=== PATIENT | male | born 1975 | race Caucasian/White ===

== ENCOUNTER 2019-06-03 08:46 | Outpatient (CLI) | payer MEDICARE, MEDICAID, SELFPAY ==
--- NOTE | 2019-06-21 08:26 | W.ZIOMONITOR ---
Date of service: 06/21/19 Time of Service: 08:26 ZIO Patch Cloud [employer] Architect Note: This is a 2-week ZIO patch ordered for the indication of palpitations. ?The patient was in normal sinus rhythm for the majority of the recording. Minimum heart rate was 47 bpm and a maximum heart rate of 156 bpm. ?There were no episodes of supraventricular tachycardia. There were isolated (less than 1%) supraventricular ectopic beats. ?There were no episodes of ventricular tachycardia. There were isolated (<1%) ventricular ectopic beats. ?There were no episodes of atrial fibrillation, no pauses greater than 3 seconds, and no high degree AV block. ?There were 6 patient triggered events all associated with sinus rhythm and sinus tachycardia up to 117 bpm.
== END 2019-06-03 09:06 ==
PROVIDERS: Visit Provider Internal Medicine Cardiovascular Disease
DX: R00.2 Palpitations (principal); R07.9 Chest pain, unspecified; F17.210 Nicotine dependence, cigarettes, uncomplicated; R00.0 Tachycardia, unspecified
CPT/HCPCS: 0296T; 99204; 93005; 93010

== ENCOUNTER 2024-02-28 18:51 | Emergency (ER) | payer OTHER, MEDICAID, SELFPAY ==
[2024-02-28 19:05] VITALS: BP 134/97; PULSE 86; RESP 20; TEMP 36; O2SAT 94
[2024-02-28 21:16] LABS: Abs Immature Grans 0.03 10^3/uL (0.0-0.06); Absolute Basophil Count 0.05 10^3/uL (0.0-0.2); Absolute Eosinophil Count 0.08 10^3/uL (0.0-0.7); Absolute Lymphocyte Count 3.78 10^3/uL (1.2-3.4); Absolute Monocyte Count 0.74 10^3/uL (0.1-0.8); Absolute Neutrophil Count 4.15 10^3/uL (1.2-6.7); Basophils % 0.6 %; Eosinophils % 0.9 %; HCT 50.7 % (40.0-50.0); HGB 17.2 g/dL (13.5-17.5); Immature Grans % 0.3 %; Lymphocytes % 42.8 %; MCH 31.9 pg (27.0-33.0); MCHC 33.9 % (32.0-36.0); MCV 94 fL (80-95); MPV 10.2 fL (8.0-11.0); Monocytes % 8.4 %; Platelet Count 227 10^3/uL (130-400); RDW 12.9 % (11.8-14.1); RDW-SD 44.5 fL; WBC 8.83 10^3/uL (4.4-10.8)
[2024-02-28] MEDS: HYDROmorphone 2 MG/ML SYR 0.5 MG IVP ×2 (21:28→23:44)
[2024-02-28 21:31] LABS: ALT 22 U/L (16-63); AST 16 U/L (15-37); Albumin 3.8 g/dL (3.4-5.0); Alkaline Phosphatase 130 U/L (46-116); Anion Gap 9.3 mmol/L (3-11); BUN 7 mg/dL (7-18); Bilirubin, Total 0.39 mg/dL (0.2-1.0); CO2 28.7 mmol/L (21.0-32.0); CREATININE 1.1 mg/dL (0.70-1.30); Chloride 101 mmol/L (98-107); Estimated GFR 83.84 (mL/min/1.73m2); Glucose 102 mg/dL (74-106); Lipase 20 U/L (16-77); Magnesium 1.9 mg/dL (1.8-2.4); Potassium 3.7 mmol/L (3.5-5.1); Sodium 139 mmol/L (136-145); Total Protein 7.6 g/dL (6.4-8.2); Troponin I < 50 ng/L (< or =60)
[2024-02-28 21:35] LABS: Calcium 9.1 mg/dL (8.5-10.1)
[2024-02-28 21:56] LABS: Bilirubin Negative (Negative); Blood Negative (Negative); Clarity Clear (Clear); Glucose Negative (Negative); Ketones Negative (Negative); Leukocyte Esterase Negative (Negative); Nitrite Negative (Negative); Urobilinogen 0.2 mg/dL (Up to 0.2); pH 6.5 (5-8)
[2024-02-28] MEDS: Normal Saline - Diluent 50 ML VIAL IJ (22:40)
[2024-02-28] MEDS: Omnipaque 350 MG/ML 100 ML BTL IJ (22:44)
--- NOTE | 2024-02-28 22:45 | DI.CT_ITS ---
Exam(s) CT ABDOMEN PELVIS W EXAM: CT ABDOMEN PELVIS W CLINICAL HISTORY: RLQ abd pain. TECHNIQUE: Imaging Protocol: Axial computed tomography images with coronal and sagittal reformatted images were created and reviewed CONTRAST MATERIAL: Intravenous: Omnipaque 350 Contrast volume:100 ml Oral: / no COMPARISON: No exams were available for comparison FINDINGS: ABDOMEN and PELVIS: Lung Bases: No acute findings. Liver: Normal density. No suspicious mass. Gallbladder and biliary tract: Status post cholecystectomy. No radiodense calculus. No biliary dila tion. Pancreas: Normal density. No abnormal calcifications or inflammatory process. No evidence of mass. Spleen: Normal. Kidneys: Normal size, contour and axis. No radiodense stones. No obstructive uropathy. No suspicious masses seen. Adrenal glands: No masses seen. Vasculature: Abdominal aorta non-dilated. Soft tissues: Unremarkable. Bladder: No gross wall thickening. No calculi.No focal mass. Bowel: No obstruction. No bowel wall thickening. Appendix normal. Mild diverticulosis. No evidenc e of diverticulitis. Moderate quantity of stool. Peritoneal cavity: No ascites. No focal collection. No mesenteric inflammatory response. Bones: Unremarkable for age. Reproductive organs: Unremarkable. Lymph nodes: No pathologically enlarged lymph nodes. IMPRESSION:: No acute abnormality in the abdomen or pelvis. Appendix normal. Mild diverticulosis. RADIATION DOSE DELIVERED: Total DLP DATA REPOSITORY: All CT scans at this facility are submitted to the National Radiology Data Registry (NRDR) Dose Index Registry (DIR) with the [employer] (ACR). RADIATION OPTIMIZATION: All CT scans at this facility use at least one of these dose optimization te chniques: automated exposure control; mA and/or kV adjustment per patient size (includes targeted exa ms where dose is matched to clinical indication); or iterative reconstruction.
--- NOTE | 2024-02-28 23:53 | DI.VRAD_ITS ---
PROCEDURE INFORMATION: Exam: CT Abdomen And Pelvis With Contrast Exam date and time: 02/28/2024 10:33 PM Age: 48 years old Clinical indication: RLQ abd pain TECHNIQUE: Imaging protocol: Computed tomography of the abdomen and pelvis with contrast. Contrast material: OMNIPAQUE 350; Contrast volume: 100 ml; Contrast route: INTRAVENOUS (IV); COMPARISON: CR XR CHEST 2VW (D) 02/20/2019 7:18 PM FINDINGS: Liver: 14 mm peripherally-enhancing benign hemangioma within the superior right lobe of the liver, otherwise normal liver. Gallbladder and biliary ducts: Status post cholecystectomy. No biliary tract dilatation. Pancreas: Normal. No ductal dilation. Spleen: Small cyst within the superomedial spleen. No splenomegaly. Adrenal glands: Normal. No mass. Kidneys and ureters: No hydronephrosis. No calcified renal or ureteral stones. No perinephric stranding or perinephric fluid. Stomach and bowel: No generalized ileus or bowel obstruction. A few scattered colon diverticuli without evidence of diverticulitis. Appendix: Normal appendix. Intraperitoneal space: No free air. No significant fluid collection. Vasculature: The abdominal aorta is normal in caliber without aneurysm or dissection. Lymph nodes: No enlarged lymph nodes. Urinary bladder: Unremarkable as visualized. Reproductive: Unremarkable as visualized. Bones/joints: Unremarkable for patient age. Soft tissues: Unremarkable. IMPRESSION: 1. No acute intra-abdominal or pelvic process. 2. Normal appendix. 3. A few scattered colon diverticuli without evidence of diverticulitis. Dictated and Authenticated by: Casper Roberto MD. Ordering:MC Bowling MD
--- NOTE | 2024-02-29 00:08 | ED.GENADUL_ITS ---
Discharge Plan Disposition Patient Disposition: Home Condition: Stable Discharge Details Clinical Impression: Abdominal pain of unknown cause, Diarrhea Primary Care Provider: Onel Calderon ED Provider: Bria Bennett Home Meds and New Rx's Prescriptions: No Action atorvastatin 20 mg tablet 20 mg PO DAILY chlorpromazine 100 mg tablet 100 mg PO DAILY divalproex 500 mg tablet extended release 24 hr 1,000 mg PO QHS methylphenidate HCl 20 mg tablet 20 mg PO BID (DME) [facility] Spacer See Rx Instructions .ROUTE .MEDSUPPLY Qty: 1 Rx Instructions: As directed pantoprazole 40 mg tablet,delayed release (DR/EC) 40 mg PO DAILY risperidone 3 mg tablet 3 mg PO DAILY albuterol sulfate [Ventolin HFA] 90 mcg/actuation HFA aerosol inhaler 2 puff IH Q6H PRN methadone 10 mg/5 mL solution 59 mg PO DAILY metoprolol succinate 25 mg tablet extended release 24 hr 12.5 mg PO ONCE Discharge Instructions Instructions: Abdominal Pain, Adult ED Additional Instructions: You were seen in the emergency department today for evaluation of abdominal pain with nausea and diarrhea. In our department, you had a full physical examination performed, had laboratory studies that were reassuring, and had a CT scan that did not show any abnormalities to account for your symptoms. Unfortunately, we are sometimes not able to determine the exact cause of your symptoms. This does not mean that something is not wrong, but just means that it was not something that we were able to find or require you to stay in the hospital. Please continue to use Tylenol and ibuprofen as needed for symptomatic management of pain, maintain good hydration and nutrition, and follow-up with your primary care provider in the next few days to discuss this visit and any symptoms that change, worsen, or persist. They will need to reevaluate you to ensure that you are improving as we expect. Thank you for allowing us to be part of your care. HPI General Mode of arrival: ambulatory . Date/Time Provider Initiated Documentation: 02/28/24 21:06 . Limitations to Documentation: no limitations . Information obtained by: patient . HPI Narrative: MDM: This is a 48-year-old male patient presenting for evaluation of abdominal pain. My differential includes but is not limited to appendicitis, certainly consider diverticulitis, bowel obstruction, hepatitis, cholecystitis, pancreatitis. Location of pain is less consistent with peptic ulcer disease, esophagitis, and the patient is without significant personal risk factors for cardiac disease. I considered UTI, nephrolithiasis. The patient's testicular pain seems to be radiating to the testicles from the abdomen, and there is no physical exam evidence to significantly increase my concern for testicular torsion, orchitis, epididymitis, and the patient is without concern for STI. The patient is at low risk for aortic pathology such as AAA. We will obtain laboratory studies to include CBC, CMP, lipase, troponin, and UA. I will provide the patient with Dilaudid for symptomatic management of pain. We will obtain a CT abdomen pelvis with contrast to better characterize any abnormalities. ED Course: I independently interpreted the laboratory studies, which show no significant leukocytosis, anemia, or thrombocytopenia. The chemistry panel is without evidence of electrolyte abnormality, kidney dysfunction, or liver injury. Lipase is low and the UA is noninfectious. On reassessment, the patient did require additional doses of medications for pain, and I did provide him with a liter of fluids for his reported dizziness, and he did have some improvement in his symptoms though not resolution. I did discuss with the patient the unclear etiology of his symptoms and recommended outpatient [id number] medicines, good hydration and nutrition, and close follow-up with his primary care provider for reassessment in the next few days. At this time, the patient has had a full medical evaluation and is safe for discharge to home. They are hemodynamically stable, ambulatory, and tolerating PO. They are understanding of the follow-up plan and return precautions. They left our facility without incident. Bria Bennett MD HPI: This is a 48-year-old male patient with a past medical history significant for opioid use disorder in remission, sleep apnea, chronic constipation, and bipolar, presenting for evaluation of abdominal pain. The patient reports that his pain has been present for 3 days, started gradually and is located in his right lower quadrant. It is associated with poor appetite and nausea but no vomiting, patient has had occasional diarrhea, and has experienced dizziness. The patient reports he has not tried any medications in the home environment to manage this pain. He states that he has a history of hemorrhoids and is scheduled for surgery, but has no other history of abdominal surgeries. He has noted that he had a fever to 101 in the home environment, not febrile here, but feels generally unwell. Has not noted anybody else in his home with similar symptoms. Exam: Gen: Awake and alert, appears uncomfortable HEENT: Non-icteric sclera Neck: Supple Lungs: No apparent respiratory distress, normal respiratory effort. CV: Appears well perfused, strong distal pulses Abdomen: Non-distended, soft, tender to palpation in the right lower quadrant with no rigidity, does have rebound tenderness, no guarding. : Normal external male genitalia with bilaterally descended testicles. The patient does have discomfort in his testicles when his right lower quadrant is palpated, but does not have testicular tenderness, firmness, uneven lie, or penile discharge. MSK: Moves 4 extremities without apparent limitation in ROM. No CVA tenderness. Skin: Visualized skin without rashes, cyanosis. Neuro: Normal Gait, no obvious focal deficits or facial asymmetry. Speaks in full, clear sentences. Psych: Appropriate for situation. Related Data Home Medications ?Medication ?Instructions ?Recorded ?Confirmed albuterol sulfate 90 mcg/actuation 2 puff inhalation Q6H PRN 05/25/19 02/28/24 aerosol inhaler (Ventolin HFA) atorvastatin 20 mg tablet 20 mg PO DAILY 05/25/19 02/28/24 chlorpromazine 100 mg tablet 100 mg PO DAILY 05/25/19 02/28/24 divalproex 500 mg tablet,extended 1,000 mg PO QHS 05/25/19 02/28/24 release 24 hr inhalational spacing device #1 ea 05/25/19 02/28/24 (Heidi Mathias [facility] spacer) methylphenidate HCl 20 mg tablet 20 mg PO BID 05/25/19 02/28/24 pantoprazole 40 mg tablet,delayed 40 mg PO DAILY 05/25/19 02/28/24 release risperidone 3 mg tablet 3 mg PO DAILY 05/25/19 02/28/24 methadone 10 mg/5 mL oral solution 59 mg PO DAILY 06/03/19 02/28/24 metoprolol succinate 25 mg 12.5 mg PO ONCE 02/28/24 02/28/24 tablet,extended release 24 hr Allergies Allergy/AdvReac Type Severity Reaction Status Date / Time clonidine Allergy Intermediate causes Verified 02/28/24 21:31 tongue to become red and hot gabapentin Allergy Intermediate makes my Verified 02/28/24 21:31 throat close up hydroxyzine AdvReac Intermediate anxiety Verified 02/28/24 21:31 atomoxetine (From Strattera) AdvReac urinary Verified 02/28/24 21:31 retention quetiapine (From Seroquel) AdvReac myalgias Verified 02/28/24 21:31 General Stated Complaint: Abd Prob RAFIA: 3 Course Vital Signs Vital signs: Vital Signs Temperature 36 C L 02/28/24 19:05 Pulse 86 02/28/24 19:05 Respiratory Rate 20 02/28/24 19:05 Blood Pressure 134/97 H 02/28/24 19:05 Pulse Oximetry 94 02/28/24 19:05 Temperature 36 C L 02/28/24 19:05 Pulse 86 02/28/24 19:05 Respiratory Rate 20 02/28/24 19:05 Respiratory Effort Normal, Non-Labored 02/28/24 21:41 Blood Pressure 134/97 H 02/28/24 19:05 Blood Pressure Position Sitting 02/28/24 19:05 Pulse Oximetry 94 02/28/24 19:05 Oxygen Delivery Method Room Air 02/28/24 19:05 Oxygen Flow Rate 0 02/28/24 19:05 Pain Level 9 02/28/24 21:28 Lab/Test Results Lab/Test Results: Laboratory Tests Range/Units 02/28/24 02/28/24 20:35 21:40 WBC (4.4-10.8) 10^3/uL 8.83 RBC (4.36-5.78) 10^6/uL 5.40 Hgb (13.5-17.5) g/dL 17.2 Hct (40.0-50.0) % 50.7 H MCV (80-95) fL 94 MCH (27.0-33.0) pg 31.9 MCHC (32.0-36.0) % 33.9 RDW (11.8-14.1) % 12.9 Plt Count (130-400) 10^3/uL 227 MPV (8.0-11.0) fL 10.2 Immature Gran % % 0.3 Neutrophils % % 47.0 Lymphocytes % % 42.8 Monocytes % % 8.4 Eosinophils % % 0.9 Basophils % % 0.6 Nucleated RBC % (0.0-0.3) % 0.0 Absolute Neutrophils (1.2-6.7) 10^3/uL 4.15 Absolute Lymphocytes (1.2-3.4) 10^3/uL 3.78 H Absolute Monocytes (0.1-0.8) 10^3/uL 0.74 Absolute Eosinophils (0.0-0.7) 10^3/uL 0.08 Absolute Basophils (0.0-0.2) 10^3/uL 0.05 Sodium (136-145) mmol/L 139 Potassium (3.5-5.1) mmol/L 3.7 Chloride (98-107) mmol/L 101 Carbon Dioxide (21.0-32.0) mmol/L 28.7 Anion Gap (3-11) mmol/L 9.3 BUN (7-18) mg/dL 7 Creatinine (0.70-1.30) mg/dL 1.1 Est GFR (CKD-EPI 2020) (mL/min/1.73m2) 83.84 Glucose (74-106) mg/dL 102 Calcium (8.5-10.1) mg/dL 9.1 Magnesium (1.8-2.4) mg/dL 1.9 Total Bilirubin (0.2-1.0) mg/dL 0.39 AST (15-37) U/L 16 ALT (16-63) U/L 22 Alkaline Phosphatase (46-116) U/L 130 H Troponin I (< or =60) ng/L < 50 Total Protein (6.4-8.2) g/dL 7.6 Albumin (3.4-5.0) g/dL 3.8 Lipase (16-77) U/L 20 Urine Color (Yellow) Yellow Urine Clarity (Clear) Clear Urine pH (5-8) 6.5 Ur Specific [place] (1.005-1.025) 1.020 Urine Protein (Neg-Trace) mg/dL Negative Urine Ketones (Negative) mg/dL Negative Urine Blood (Negative) Negative Urine Nitrite (Negative) Negative Urine Bilirubin (Negative) Negative Urine Urobilinogen (Up to 0.2) mg/dL 0.2 Ur Leukocyte Esterase (Negative) Negative Urine Glucose (Negative) mg/dL Negative Medical Decision Making Quality:SDOH Health Related Social Needs: No Data to Display PFSH All Active Problems (Updated 02/29/24 @ 00:43 by Bria Bennett MD) Diarrhea (Acute) Abdominal pain of unknown cause (Acute) Chest pain at rest (Acute) Palpitations (Acute) Chronic constipation (Acute) Central sleep apnea (Acute) Nicotine dependence (Acute) Opioid dependence (Acute) Bipolar disorder (Acute) Severe obesity (Acute) Hyperlipidemia (Acute) Medical History (Updated 02/29/24 @ 00:43 by Bria Bennett MD) Generalized abdominal pain Chest pain Sleep disorder Impotence of organic origin Biliary dyskinesia Diaphragmatic hernia Asthma DVT (deep venous thrombosis) (~02/2018) per pt, d/t IV use Benign paroxysmal positional vertigo ADHD (attention deficit hyperactivity disorder) Cocaine abuse Testicular hypofunction Family History (Updated 06/03/19 @ 10:00 by Gaye Wong RN, RN) Mother No problems noted. Father Heart disease Atrial fibrillation Diabetes Social History Smoking/Tobacco Use Status: Current every day Tobacco Type: cigarettes Smoking packs per day: 1 Smoking cigarettes per day: 20.0 Years smoked: 15 Smoking pack- years: 15.00 Quit status: considering quitting Smoking risk assessment performed?: Yes Alcohol Intake: never Drug use: Never Substance use type: former substance user and marijuana Details: sober for 15 years. Household members: children Housing: apartment Current gender identity: male What type of physical activity do you participate in: none
[2024-02-29] MEDS: Lactated Ringers 1,000 ML 1000 ML IV (00:15)
[2024-02-29] MEDS: ACETAMINOPHEN 1,000 MG/100 ML BTL 400 MG IVPB (00:50)
[2024-02-29 00:57] LABS: Troponin I < 50 ng/L (< or =60)
--- NOTE | 2024-02-29 01:00 | RT.EKG_ITS ---
APPROVED REPORT Exam: Resting ECG Reason for Exam: Repeat Patient Location: E HR:76 bpm ECG Measurements Heart Rate 76 AXIS TX 124 P 29 QRSd 85 QRS 23 QT 394 T 29 QTc 443 Conclusion Sinus rhythm...normal P axis, V-rate 60- 99 sinus rhtyhm, normal axis, normal itnervals, non ischemic
[2024-02-29 01:15] VITALS: BP 143/86; PULSE 67; RESP 16; TEMP 36.8; O2SAT 98
[2024-02-29 01:17] VITALS: BP 143/86; PULSE 67; RESP 16; TEMP 36.8; O2SAT 98
--- NOTE | 2024-02-29 13:55 | NUR.NOTE ---
Accessed Pt chart to fax yesterday's visit to Primary Care Provider. Dr Saavedra fax: [phone]
--- NOTE | 2024-03-03 10:43 | NUR.NOTE ---
Access chart to reconcile EKG orders and EKG's in [facility]. Nursing Note:
--- NOTE | 2024-03-15 08:59 | NUR.NOTE ---
Access chart to reconcile EKG's. Nursing Note:
== END 2024-02-29 01:17 | disposition home or self-care (01) ==
PROVIDERS: Emergency Provider Emergency Medicine; PCP Family Medicine
DX: R10.31 Right lower quadrant pain (principal); R19.7 Diarrhea, unspecified; F17.200 Nicotine dependence, unspecified, uncomplicated
CPT/HCPCS: 36415; 80053; 83690; 93005; 96361; 96365; 96375; 96376; 99285; 74177; 81003; 83735; 84484; 85025; 93010; 99283; J0131; J1170; J3490

== ENCOUNTER 2024-02-29 12:02 | Emergency (ER) | payer OTHER, MEDICAID, SELFPAY ==
[2024-02-29 12:10] VITALS: BP 118/75; PULSE 85; RESP 16; TEMP 36.6; O2SAT 92
[2024-02-29 14:33] LABS: Bilirubin Negative (Negative); Blood Negative (Negative); Clarity Clear (Clear); Glucose Negative (Negative); Ketones Negative (Negative); Leukocyte Esterase Negative (Negative); Nitrite Negative (Negative); pH 6.5 (5-8)
--- NOTE | 2024-02-29 16:39 | ED.GENADUL_ITS ---
Discharge Plan Disposition Patient Disposition: Home Condition: Improving Discharge Details Chief Complaint: Abd Prob Clinical Impression: Diarrhea Primary Care Provider: Onel Calderon ED Provider: Pop Farmer Home Meds and New Rx's Prescriptions: No Action atorvastatin 20 mg tablet 20 mg PO DAILY chlorpromazine 100 mg tablet 100 mg PO DAILY divalproex 500 mg tablet extended release 24 hr 1,000 mg PO QHS methylphenidate HCl 20 mg tablet 20 mg PO BID (DME) [facility] Spacer See Rx Instructions .ROUTE .MEDSUPPLY Qty: 1 Rx Instructions: As directed pantoprazole 40 mg tablet,delayed release (DR/EC) 40 mg PO DAILY risperidone 3 mg tablet 3 mg PO DAILY albuterol sulfate [Ventolin HFA] 90 mcg/actuation HFA aerosol inhaler 2 puff IH Q6H PRN methadone 10 mg/5 mL solution 59 mg PO DAILY metoprolol succinate 25 mg tablet extended release 24 hr 12.5 mg PO ONCE Discharge Instructions Instructions: Diarrhea, Adult ED Additional Instructions: Please follow with your primary care physician as scheduled tomorrow. HPI General Date/Time Provider Initiated Documentation: 02/29/24 12:07 . HPI Narrative: 48-year-old male presents with 3 days of right lower quadrant abdominal discomfort chills nausea and diarrhea Related Data Home Medications ?Medication ?Instructions ?Recorded ?Confirmed albuterol sulfate 90 mcg/actuation 2 puff inhalation Q6H PRN 05/25/19 02/28/24 aerosol inhaler (Ventolin HFA) atorvastatin 20 mg tablet 20 mg PO DAILY 05/25/19 02/28/24 chlorpromazine 100 mg tablet 100 mg PO DAILY 05/25/19 02/28/24 divalproex 500 mg tablet,extended 1,000 mg PO QHS 05/25/19 02/28/24 release 24 hr inhalational spacing device #1 ea 05/25/19 02/28/24 ([facility] spacer) methylphenidate HCl 20 mg tablet 20 mg PO BID 05/25/19 02/28/24 pantoprazole 40 mg tablet,delayed 40 mg PO DAILY 05/25/19 02/28/24 release risperidone 3 mg tablet 3 mg PO DAILY 05/25/19 02/28/24 methadone 10 mg/5 mL oral solution 59 mg PO DAILY 06/03/19 02/28/24 metoprolol succinate 25 mg 12.5 mg PO ONCE 02/28/24 02/28/24 tablet,extended release 24 hr Allergies Allergy/AdvReac Type Severity Reaction Status Date / Time prednisone Allergy Severe Other (See Verified 02/29/24 12:13 Comment) clonidine Allergy Intermediate causes Verified 02/29/24 12:13 tongue to become red and hot gabapentin Allergy Intermediate makes my Verified 02/29/24 12:13 throat close up hydroxyzine AdvReac Intermediate anxiety Verified 02/29/24 12:13 atomoxetine (From Strattera) AdvReac urinary Verified 02/29/24 12:13 retention quetiapine (From Seroquel) AdvReac myalgias Verified 02/29/24 12:13 General Stated Complaint: Abd Prob RAFIA: 3 Exam Narrative Exam Narrative: Appears mildly uncomfortable Slight drying of oral mucosa Abdomen soft nontender nondistended nonperitoneal however does have subjective tenderness in right lower quadrant without guarding or rebounding All extremities without deficit No respiratory distress speaking full sentences Course Vital Signs Vital signs: Vital Signs Temperature 36.6 C 02/29/24 12:10 Pulse 85 02/29/24 12:10 Respiratory Rate 16 02/29/24 12:10 Blood Pressure 118/75 02/29/24 12:10 Pulse Oximetry 92 02/29/24 12:10 Temperature 36.6 C 02/29/24 12:10 Pulse 85 02/29/24 12:10 Respiratory Rate 16 02/29/24 12:10 Respiratory Effort Normal, Non-Labored 02/29/24 15:46 Blood Pressure 118/75 02/29/24 12:10 Blood Pressure Position Sitting 02/29/24 12:10 Pulse Oximetry 92 02/29/24 12:10 Oxygen Delivery Method Room Air 02/29/24 12:10 Oxygen Flow Rate 0 02/29/24 12:10 Pain Level 9 02/29/24 15:46 Lab/Test Results Lab/Test Results: Laboratory Tests Range/Units 02/29/24 14:15 Urine Color (Yellow) Yellow Urine Clarity (Clear) Clear Urine pH (5-8) 6.5 Ur Specific [place] (1.005-1.025) 1.020 Urine Protein (Neg-Trace) mg/dL Negative Urine Ketones (Negative) mg/dL Negative Urine Blood (Negative) Negative Urine Nitrite (Negative) Negative Urine Bilirubin (Negative) Negative Urine Urobilinogen (Up to 0.2) mg/dL 1.0 H Ur Leukocyte Esterase (Negative) Negative Urine Glucose (Negative) mg/dL Negative Medical Decision Making 48-year-old male presents with 3 days of right lower quadrant abdominal pain nausea and diarrhea. Hemodynamically stable afebrile nontoxic nonperitoneal however patient is mildly tender in right lower quadrant without guarding or rebounding. Slightly dry oral mucosa appears moderately uncomfortable. Consider early appendicitis versus colitis versus enteritis lower suspicion for UTI or nephrolithiasis. Will obtain basic labs CT abdomen pelvis, IV fluids antiemetics analgesia close reassessment 17: 48 patient resting notably no acute distress. Labs imaging unremarkable. No evidence of appendicitis. Not peritoneal. Home care instructions return precautions given. Viral GI Quality:SDOH Health Related Social Needs: No Data to Display PFSH All Active Problems (Updated 02/29/24 @ 17:48 by Pop Farmer MD) Diarrhea (Acute) Diarrhea (Acute) Abdominal pain of unknown cause (Acute) Chest pain at rest (Acute) Palpitations (Acute) Chronic constipation (Acute) Central sleep apnea (Acute) Nicotine dependence (Acute) Opioid dependence (Acute) Bipolar disorder (Acute) Severe obesity (Acute) Hyperlipidemia (Acute) Medical History (Updated 02/29/24 @ 17:48 by Pop Farmer MD) Generalized abdominal pain Chest pain Sleep disorder Impotence of organic origin Biliary dyskinesia Diaphragmatic hernia Asthma DVT (deep venous thrombosis) (~02/2018) per pt, d/t IV use Benign paroxysmal positional vertigo ADHD (attention deficit hyperactivity disorder) Cocaine abuse Testicular hypofunction Family History (Updated 06/03/19 @ 10:00 by Gaye Wong RN, RN) Mother No problems noted. Father Heart disease Atrial fibrillation Diabetes Social History Smoking/Tobacco Use Status: Current every day Tobacco Type: cigarettes Smoking packs per day: 1 Smoking cigarettes per day: 20.0 Years smoked: 15 Smoking pack- years: 15.00 Quit status: considering quitting Smoking risk assessment performed?: Yes Alcohol Intake: never Drug use: Never Substance use type: former substance user and marijuana Details: sober for 15 years. Household members: children Housing: apartment Current gender identity: male What type of physical activity do you participate in: none
[2024-02-29] MEDS: Normal Saline 1,000 ML 1000 ML IV (16:45)
[2024-02-29] MEDS: ACETAMINOPHEN 1,000 MG/100 ML BTL 400 MG IVPB (16:46)
[2024-02-29 16:51] LABS: Abs Immature Grans 0.02 10^3/uL (0.0-0.06); Absolute Basophil Count 0.03 10^3/uL (0.0-0.2); Absolute Eosinophil Count 0.03 10^3/uL (0.0-0.7); Absolute Lymphocyte Count 2.94 10^3/uL (1.2-3.4); Absolute Monocyte Count 0.63 10^3/uL (0.1-0.8); Absolute Neutrophil Count 3.55 10^3/uL (1.2-6.7); Basophils % 0.4 %; Eosinophils % 0.4 %; HCT 46.4 % (40.0-50.0); HGB 15.7 g/dL (13.5-17.5); Immature Grans % 0.3 %; Lymphocytes % 40.8 %; MCH 31.8 pg (27.0-33.0); MCHC 33.8 % (32.0-36.0); MCV 94 fL (80-95); MPV 9.9 fL (8.0-11.0); Monocytes % 8.8 %; Neutrophils % 49.3 %; Platelet Count 193 10^3/uL (130-400); RBC 4.94 10^6/uL (4.36-5.78); RDW 12.9 % (11.8-14.1); RDW-SD 44.3 fL
[2024-02-29 16:55] VITALS: BP 131/72; PULSE 66; RESP 16; TEMP 36.7; O2SAT 96
[2024-02-29 17:06] LABS: ALT 17 U/L (16-63); AST 13 U/L (15-37); Albumin 3.5 g/dL (3.4-5.0); Alkaline Phosphatase 117 U/L (46-116); Anion Gap 6.8 mmol/L (3-11); BUN 6 mg/dL (7-18); Bilirubin, Total 0.39 mg/dL (0.2-1.0); CO2 29.2 mmol/L (21.0-32.0); CREATININE 0.9 mg/dL (0.70-1.30); Chloride 103 mmol/L (98-107); Estimated GFR 106.67 (mL/min/1.73m2); Glucose 88 mg/dL (74-106); Lipase 18 U/L (16-77); Potassium 3.8 mmol/L (3.5-5.1); Sodium 139 mmol/L (136-145); Total Protein 6.8 g/dL (6.4-8.2)
[2024-02-29] MEDS: Omnipaque 350 MG/ML 100 ML BTL IJ (17:06)
[2024-02-29] MEDS: Normal Saline - Diluent 50 ML VIAL IJ (17:07)
[2024-02-29 17:17] LABS: Calcium 9.1 mg/dL (8.5-10.1)
--- NOTE | 2024-02-29 17:18 | DI.CT_ITS ---
Exam(s) CT ABDOMEN PELVIS W EXAM: CT ABDOMEN PELVIS W CLINICAL HISTORY: RLQ pain diarrhea nausea TECHNIQUE: Imaging Protocol: Axial computed tomography images with coronal and sagittal reformatted images were created and reviewed. CONTRAST MATERIAL: Intravenous: Omnipaque 350 Contrast volume:100 mL Oral: No COMPARISON: CT CT ABDOMEN PELVIS W from 02/28/2024 FINDINGS: ABDOMEN: Lung Bases: Normal where visualized. Liver: Normal density. There is again seen a 1.3 cm peripherally enhancing mass in the dome of the ri ght lobe of the liver most suggestive of a benign-appearing hepatic hemangioma. No suspicious hepati c masses are seen. Portal, Superior Mesenteric, and Splenic Veins: Unremarkable. Gallbladder and Biliary Tract: Status post cholecystectomy. No significant biliary ductal dilatation . Pancreas: Normal density, no abnormal calcifications or inflammatory process. Spleen: There is a stable round hypodensity in the posterior aspect of the spleen which may represent a cyst or hemangioma. Adrenals: No masses seen. Kidneys: Normal size, contour and axis. No radiodense stones or obstructive uropathy. No masses seen. Abdominal Aorta: Abdominal portion non-dilated. Atherosclerotic calcification is present. Bowel: There is diverticulosis of the colon but no evidence of acute diverticulitis. No bowel wall t hickening or bowel obstruction is seen. No evidence of appendicitis. Peritoneal Cavity: No ascites, collection or mesenteric inflammatory response. No free air. Lymph Nodes: Within normal limits. Bones: Within normal limits for the patient's age. Soft Tissues: Unremarkable. PELVIS: Bladder: Symmetric distention, no gross wall thickening. Reproductive Organs: Unremarkable as visualized. Lymph Nodes: Within normal limits. Bones: Within normal limits for the patient's age. IMPRESSION: No acute abdominal or pelvic process. RADIATION DOSE DELIVERED: Total DLP DATA REPOSITORY: All CT scans at this facility are submitted to the National Radiology Data Registry (NRDR) Dose Index Registry (DIR) with the [employer] (ACR). RADIATION OPTIMIZATION: All CT scans at this facility use at least one of these dose optimization te chniques: automated exposure control; mA and/or kV adjustment per patient size (includes targeted exa ms where dose is matched to clinical indication); or iterative reconstruction.
[2024-02-29 17:47] VITALS: BP 147/80; PULSE 81; RESP 16; O2SAT 96
--- NOTE | 2024-04-09 08:04 | NUR.NOTE ---
Access chart to see if able to cancel duplicate order and at this time unable to do so. Nursing Note:
== END 2024-02-29 17:55 | disposition home or self-care (01) ==
PROVIDERS: Emergency Medicine; Emergency Provider Emergency Medicine; PCP Family Medicine
DX: R10.31 Right lower quadrant pain (principal); R11.0 Nausea; R19.7 Diarrhea, unspecified; F17.200 Nicotine dependence, unspecified, uncomplicated
CPT/HCPCS: 80053; 83690; 96361; 96374; 99285; 74177; 81003; 85025; 99283; J0131; J3490

== ENCOUNTER 2024-04-21 07:01 | Emergency (ER) | payer OTHER, MEDICAID, SELFPAY ==
--- NOTE | 2024-04-21 09:00 | DI.CT_ITS ---
Exam(s) CT ABDOMEN PELVIS W EXAM: CT ABDOMEN PELVIS W CLINICAL HISTORY: Abd and prostate pain, hx recent surg, eval absces. TECHNIQUE: Imaging Protocol: Axial computed tomography images with coronal and sagittal reformatted images were created and reviewed CONTRAST MATERIAL: Intravenous: Omnipaque-350 100cc Oral: None COMPARISON: CT CT ABDOMEN PELVIS W from 02/29/2024 FINDINGS: VISUALIZED LUNG BASES: No nodules nor pleural effusions evident. ABDOMEN: There is no ascites. LIVER: Again noted is a previously described benign-appearing non cystic lesion in the right hepatic lobe which is most probably a small benign in hepatic hemangioma. No other focal hepatic findings. Mild dilatation of intrahepatic ducts is most probably related to post cholecystectomy status. GALLBLADDER/BILIARY: Gallbladder is again noted be surgically absent. CBD is not dilated. PANCREAS: No evidence of pancreatic mass nor dilatation of the pancreatic duct. SPLEEN: Spleen size is normal. There is a subcapsular cyst in the posterior spleen measuring 1 cm. No other splenic findings. Splenic and portal veins are patent. ADRENALS: There are no significant adrenal masses. KIDNEYS:No cysts evident. No solid renal masses. No calculi nor hydronephrosis.. ABDOMINAL AORTA: Abdominal aorta is not enlarged. LYMPH NODES:There is no retroperitoneal nor paraaortic adenopathy. ABDOMINAL WALL: No evidence of significant anterior abdominal wall nor inguinal hernia. GI: There is no evidence of bowel obstruction, free air, nor abscess. PELVIS: GI: No evidence of appendicitis.There is sigmoid diverticuli but no evidence of acute diverticulitis. LYMPH NODES: There is no intrapelvic nor inguinal adenopathy. REPRODUCTIVE: Prostate size not enlarged. Seminal vesicles appear unremarkable. URINARY BLADDER: No calculi nor obvious masses evident. Pelvic ureters are not dilated. OSSEOUS: No fractures and no significant osseous lesions. IMPRESSION: 1. No acute findings in the abdomen and pelvis. 2. Other findings as above. Called by myself to ER physician 04/21/2024 at 11:05 a.m. RADIATION DOSE DELIVERED: 969.42mGy.cm Total DLP DATA REPOSITORY: All CT scans at this facility are submitted to the National Radiology Data Registry (NRDR) Dose Index Registry (DIR) with the [employer] (ACR). RADIATION OPTIMIZATION: All CT scans at this facility use at least one of these dose optimization te chniques: automated exposure control; mA and/or kV adjustment per patient size (includes targeted exa ms where dose is matched to clinical indication); or iterative reconstruction.
--- NOTE | 2024-04-21 09:01 | W.ED.GENAD ---
Discharge Plan Disposition Patient Disposition: Home Condition: Stable Discharge Details Clinical Impression: Painful prostate, Hyperlipidemia, Bipolar disorder, Opioid dependence, Central sleep apnea Primary Care Provider: Onel Calderon ED Provider: Bria Bennett Home Meds and New Rx's Prescriptions: No Action atorvastatin 20 mg tablet 20 mg PO DAILY chlorpromazine 100 mg tablet 100 mg PO DAILY divalproex 500 mg tablet extended release 24 hr 1,000 mg PO QHS methylphenidate HCl 20 mg tablet 20 mg PO BID (DME) [facility] Spacer See Rx Instructions .ROUTE .MEDSUPPLY Qty: 1 Rx Instructions: As directed pantoprazole 40 mg tablet,delayed release (DR/EC) 40 mg PO DAILY risperidone 3 mg tablet 3 mg PO DAILY albuterol sulfate [Ventolin HFA] 90 mcg/actuation HFA aerosol inhaler 2 puff IH Q6H PRN methadone 10 mg/5 mL solution 59 mg PO DAILY metoprolol succinate 25 mg tablet extended release 24 hr 12.5 mg PO ONCE Discharge Instructions Instructions: Bacterial prostatitis Additional Instructions: You were seen in the emergency department today for evaluation of prostate pain. In our department he had a full physical examination performed, had laboratory studies that were reassuring, and had a CT scan that did not show any signs of abscesses or other abnormalities that could account for your ongoing pain. We recommend that you continue to take your ciprofloxacin as prescribed for the full 21-day course. You will need to follow-up with your primary care provider in the next few days to discuss this visit and any symptoms that change, worsen, or persist. Thank you for allowing us to be part of your care. HPI General Mode of arrival: ambulatory. Date/Time Provider Initiated Documentation: 04/21/24 09:01. Limitations to Documentation: no limitations. Information obtained by: patient and old records reviewed. HPI Narrative: HPI: This is a 49-year-old male patient with a past medical history significant for hyperlipidemia, bipolar, and reported recent admission to [facility] where he had masses resected from his colon (11/2023), hemorrhoidectomy (02/2024), and was started on ciprofloxacin 4 to 5 days ago for reported prostate infection. He presents today with ongoing prostate pain and concerned that his antibiotics are not working. The patient reports that he has been eating and drinking normally though he does have occasional nausea. Takes methadone for opioid use maintenance therapy, and therefore avoids antiemetic medications. States that he has been passing stools normally and last stool was yesterday, without blood or diarrhea. He has noted ongoing dysuria and urinary frequency and feels that he occasionally dribbles. The patient states that he has been eating and drinking, and is without other recent changes in his health. Exam: Gen: Awake and alert, in no apparent distress HEENT: Non-icteric sclera Neck: Supple Lungs: No apparent respiratory distress, normal respiratory effort. CV: Appears well perfused, strong distal pulses Abdomen: Non-distended, soft, generalized tenderness to palpation without rigidity, rebound, or guarding. No point tenderness. : Supervised by LMA, revealing normal external anus with 1 small, nonthrombosed external hemorrhoid. The patient has no palpable fluctuance in the perianal region, does have a boggy and tender prostate. MSK: Moves 4 extremities without apparent limitation in ROM Skin: Visualized skin without rashes, cyanosis. Neuro: Normal Gait, no obvious focal deficits or facial asymmetry. Speaks in full, clear sentences. Psych: Appropriate for situation. MDM: This is a 49-year-old male patient presenting for evaluation of abdominal pain and rectal/prostate pain. My differential includes but is not limited to ongoing prostatitis, certainly considered perirectal or perianal abscess, post hemorrhoidectomy complication. The patient is passing stool and flatus and I have a lower concern for bowel obstruction, perforation, and his abdominal examination is benign. I considered urinary tract infection, pyelonephritis, nephrolithiasis. Considered metabolic and electrolyte derangements, dehydration, anemia, kidney and liver injury. We will obtain records from his hospitalization at [facility], obtain laboratory studies to include CBC, CMP, lipase, lactate, and urinalysis. I will obtain a CT abdomen pelvis with contrast to better characterize any abnormalities that would account for the patient's symptoms. I will provide him with a dose of Tylenol and Dilaudid for initial symptomatic management of pain. ED Course: I independently interpreted the laboratory studies, which show no significant leukocytosis, anemia, or thrombocytopenia. The chemistry panel is without evidence of electrolyte abnormality, kidney dysfunction, or liver injury. I independently interpreted the patient's CT scan, which shows no evidence of perirectal or perianal abscess, prostate abscess, or other acute abnormality that might account for his symptoms. Urinalysis is noninfectious. I did recommend that the patient continue his Cipro, for the entire 21-day course that he was recommended, and to follow-up with his primary care provider to discuss next steps in management. At this time, the patient has had a full medical evaluation and is safe for discharge to home. They are hemodynamically stable, ambulatory, and tolerating PO. They are understanding of the follow-up plan and return precautions. They left our facility without incident. Bria Bennett MD Related Data Home Medications ?Medication ?Instructions ?Recorded ?Confirmed albuterol sulfate 90 mcg/actuation 2 puff inhalation Q6H PRN 05/25/19 02/28/24 aerosol inhaler (Ventolin HFA) atorvastatin 20 mg tablet 20 mg PO DAILY 05/25/19 02/28/24 chlorpromazine 100 mg tablet 100 mg PO DAILY 05/25/19 02/28/24 divalproex 500 mg tablet,extended 1,000 mg PO QHS 05/25/19 02/28/24 release 24 hr inhalational spacing device #1 ea 05/25/19 02/28/24 [facility] spacer) methylphenidate HCl 20 mg tablet 20 mg PO BID 05/25/19 02/28/24 pantoprazole 40 mg tablet,delayed 40 mg PO DAILY 05/25/19 02/28/24 release risperidone 3 mg tablet 3 mg PO DAILY 05/25/19 02/28/24 methadone 10 mg/5 mL oral solution 59 mg PO DAILY 06/03/19 02/28/24 metoprolol succinate 25 mg 12.5 mg PO ONCE 02/28/24 02/28/24 tablet,extended release 24 hr Allergies Allergy/AdvReac Type Severity Reaction Status Date / Time prednisone Allergy Severe Other (See Verified 02/29/24 12:13 Comment) clonidine Allergy Intermediate causes Verified 02/29/24 12:13 tongue to become red and hot gabapentin Allergy Intermediate makes my Verified 02/29/24 12:13 throat close up hydroxyzine AdvReac Intermediate anxiety Verified 02/29/24 12:13 atomoxetine (From Strattera) AdvReac urinary Verified 02/29/24 12:13 retention quetiapine (From Seroquel) AdvReac myalgias Verified 02/29/24 12:13 General Stated Complaint: Male Reproductive Problem RAFIA: 3 Medical Decision Making Quality:SDOH Health Related Social Needs: No Data to Display PFSH All Active Problems (Updated 04/21/24 @ 11:11 by Bria Bennett MD) Painful prostate (Acute) Chest pain at rest (Acute) Palpitations (Acute) Chronic constipation (Acute) Central sleep apnea (Acute) Nicotine dependence (Acute) Opioid dependence (Acute) Bipolar disorder (Acute) Severe obesity (Acute) Hyperlipidemia (Acute) Medical History (Updated 04/21/24 @ 11:11 by Bria Bennett MD) Generalized abdominal pain Chest pain Sleep disorder Impotence of organic origin Biliary dyskinesia Diaphragmatic hernia Asthma DVT (deep venous thrombosis) (~02/2018) per pt, d/t IV use Benign paroxysmal positional vertigo ADHD (attention deficit hyperactivity disorder) Cocaine abuse Testicular hypofunction Family History (Updated 06/03/19 @ 10:00 by Gaye Wong RN, RN) Mother No problems noted. Father Heart disease Atrial fibrillation Diabetes Social History Smoking/Tobacco Use Status: Former Tobacco Use Quit status: considering quitting Smoking risk assessment performed?: Yes Alcohol Intake: never Drug use: Never Substance use type: former substance user Details: sober for 15 years. Household members: children Housing: apartment Current gender identity: male What type of physical activity do you participate in: none
[2024-04-21] MEDS: Acetaminophen 500 MG TAB (09:16)
[2024-04-21] MEDS: HYDROmorphone 2 MG/ML SYR (09:17)
[2024-04-21] MEDS: Normal Saline - Diluent 50 ML VIAL IJ (09:31)
--- NOTE | 2024-04-21 10:01 | NUR.NOTE ---
Nursing Note: This RN received report and transfer of care at this time by Loretta Blanco RN
[2024-04-21] MEDS: Omnipaque 350 MG/ML 500 ML BTL-Imaging package 100 ML IJ (10:22)
[2024-04-21 11:20] VITALS: BP 142/83; PULSE 87; RESP 15; O2SAT 98
[2024-04-21 12:49] LABS: ALT 19 U/L (16-63); AST 15 U/L (15-37); Albumin 3.8 g/dL (3.4-5.0); Alkaline Phosphatase 128 U/L (46-116); Anion Gap 11.9 mmol/L (3-11); BUN 12 mg/dL (7-18); Bilirubin, Total 0.32 mg/dL (0.2-1.0); CO2 26.1 mmol/L (21.0-32.0); Calcium 9.4 mg/dL (8.5-10.1); Chloride 103 mmol/L (98-107); Estimated GFR 93.42 (mL/min/1.73m2); Glucose 88 mg/dL (74-106); Lipase 28 U/L (16-77); Potassium 4.1 mmol/L (3.5-5.1); Sodium 141 mmol/L (136-145); Total Protein 7.2 g/dL (6.4-8.2)
[2024-04-21 12:52] LABS: Clarity Sl Cloudy (Clear)
[2024-04-21 12:53] LABS: Bacteria Rare HPF (Negative); Bilirubin Small (Negative); Blood Negative (Negative); Crystals Negative HPF (Negative); Epithelial Cells Few HPF (Negative); Glucose Negative (Negative); Ketones 15 mg/dL (Negative); Leukocyte Esterase Negative (Negative); Nitrite Negative (Negative); RBC 0-2 HPF (0-2); Specific Gravity >= 1.030 (1.005-1.025); WBC 0-2 HPF (0-5)
[2024-04-21 12:54] LABS: Mucus Moderate (Negative)
[2024-04-21 12:55] LABS: C & S Indicated? No; Casts 10-20 Hyaline LPF (Negative)
[2024-04-21 13:18] LABS: Abs Immature Grans 0.03 10^3/uL (0.0-0.06); Absolute Basophil Count 0.05 10^3/uL (0.0-0.2); Absolute Eosinophil Count 0.08 10^3/uL (0.0-0.7); Absolute Lymphocyte Count 3.22 10^3/uL (1.2-3.4); Absolute Monocyte Count 0.67 10^3/uL (0.1-0.8); Absolute Neutrophil Count 3.56 10^3/uL (1.2-6.7); Basophils % 0.7 %; Eosinophils % 1.1 %; HGB 16.9 g/dL (13.5-17.5); Immature Grans % 0.4 %; Lymphocytes % 42.3 %; MCH 32.3 pg (27.0-33.0); MCHC 35.2 % (32.0-36.0); MCV 92 fL (80-95); MPV 10.4 fL (8.0-11.0); Monocytes % 8.8 %; Neutrophils % 46.7 %; Platelet Count 203 10^3/uL (130-400); RBC 5.24 10^6/uL (4.36-5.78); RDW 12.6 % (11.8-14.1); RDW-SD 42.2 fL; WBC 7.61 10^3/uL (4.4-10.8)
== END 2024-04-21 11:21 | disposition home or self-care (01) ==
PROVIDERS: Emergency Provider Emergency Medicine; PCP Family Medicine
DX: N41.9 Inflammatory disease of prostate, unspecified (principal); G47.31 Primary central sleep apnea; F11.20 Opioid dependence, uncomplicated; Z86.718 Personal history of other venous thrombosis and embolism; Z90.49 Acquired absence of other specified parts of digestive tract; Z79.899 Other long term (current) drug therapy; Z87.891 Personal history of nicotine dependence
CPT/HCPCS: 80053; 83690; 99285; 74177; 81003; 81015; 83605; 85025; 99284; J1171

== ENCOUNTER → 2024-05-12 10:10 | Outpatient (BNVA) | payer OTHER, MEDICAID, SELFPAY | PROVIDERS: PCP Family Medicine; Referring Provider Family Medicine; Visit Provider Surgery | DX: R10.32 Left lower quadrant pain (principal); G89.29 Other chronic pain; F31.9 Bipolar disorder, unspecified; F11.20 Opioid dependence, uncomplicated; K59.09 Other constipation; N42.81 Prostatodynia syndrome; G47.31 Primary central sleep apnea; F17.200 Nicotine dependence, unspecified, uncomplicated | CPT/HCPCS: 99213 ==

== ENCOUNTER 2024-09-06 05:47 | Emergency (ER) | payer MEDICARE, MEDICAID, SELFPAY ==
[2024-09-06 05:49] VITALS: BP 150/99; PULSE 94; RESP 18; TEMP 37.2; O2SAT 97
--- NOTE | 2024-09-06 06:00 | DI.RAD_ITS ---
Exam(s) XR CHEST 2V PA LATERAL EXAM: XR CHEST 2V PA LATERAL CLINICAL HISTORY: fall, right lateral rib pain TECHNIQUE: 2D digital imaging was performed. Two views. COMPARISON: CR XR CHEST 2VW (D) from 02/20/2019 FINDINGS: HEART: Normal size. Aorta: Not dilated. PULMONARY VASCULATURE: Normal. MEDIASTINUM: Unremarkable. LUNGS: Clear. PLEURAL SPACE: No pleural effusion or pneumothorax. BONE:Unremarkable for age. No grossly displaced rib fractures. No thoracic compression fractures SOFT TISSUES: Unremarkable. IMPRESSION: No acute abnormality. DATA REPOSITORY: RADIATION DOSE DELIVERED:
--- NOTE | 2024-09-06 06:12 | ED.GENADUL_ITS ---
Discharge Plan Disposition Patient Disposition: Home Condition: Good Discharge Details Clinical Impression: Pain in rib Primary Care Provider: Onel Calderon ED Provider: Xuan Quintanilla Home Meds and New Rx's Prescriptions: Continued atorvastatin 20 mg tablet 20 mg PO DAILY chlorpromazine 100 mg tablet 100 mg PO DAILY divalproex 500 mg tablet extended release 24 hr 1,000 mg PO QHS methylphenidate HCl 20 mg tablet 20 mg PO BID [facility] See Rx Instructions .ROUTE .MEDSUPPLY Qty: 1 Rx Instructions: As directed pantoprazole 40 mg tablet,delayed release (DR/EC) 40 mg PO DAILY risperidone 3 mg tablet 3 mg PO DAILY albuterol sulfate [Ventolin HFA] 90 mcg/actuation HFA aerosol inhaler 2 puff IH Q6H PRN methadone 10 mg/5 mL solution 60 mg PO DAILY hydrocodone-acetaminophen 5-325 mg tablet 1 tab PO Q6H PRN Patient Comments: pt states takes this for prostate, lower left groin pain metoprolol succinate 25 mg tablet extended release 24 hr 12.5 mg PO ONCE Discontinued psyllium husk [Fiber (psyllium husk)] 0.4 gram capsule 0.8 g PO DAILY Qty: 60 12RF Discharge Instructions Additional Instructions: Your chest xray did not show any broken ribs. Take tylenol and ibuprofen over the counter for pain; follow the directions on the bottle. Call your primary care doctor today to schedule an appointment to followup on your visit here. Return to the emergency department for new or worsening symptoms including worsening pain, difficulty breathing, or if you have any other concerns. Referrals: Onel Calderon [Primary Care Provider] - [facility] General Mode of arrival: ambulatory . Date/Time Provider Initiated Documentation: 09/06/24 05:54 . Limitations to Documentation: no limitations . Information obtained by: patient . HPI Narrative: 49yo M with chronic back pain, on methadone and oxycodone, presenting for right rib pain. Yesterday tripped near his couch, fell onto back of couch was has a hard board. Since then has had pain in his right ribs, worse with deep breathing. Took home oxycodone without much improvement. Denies pain or injury elsewhere, did not strike his head. Otherwise in his usual state of health. Related Data Home Medications ?Medication ?Instructions ?Recorded ?Confirmed albuterol sulfate 90 mcg/actuation 2 puff inhalation Q6H PRN 05/25/19 09/06/24 aerosol inhaler (Ventolin HFA) atorvastatin 20 mg tablet 20 mg PO DAILY 05/25/19 09/06/24 chlorpromazine 100 mg tablet 100 mg PO DAILY 05/25/19 09/06/24 divalproex 500 mg tablet,extended 1,000 mg PO QHS 05/25/19 09/06/24 release 24 hr inhalational spacing device #1 ea 05/25/19 09/06/24 (Heidi Mathias [facility] spacer) methylphenidate HCl 20 mg tablet 20 mg PO BID 05/25/19 09/06/24 pantoprazole 40 mg tablet,delayed 40 mg PO DAILY 05/25/19 09/06/24 release risperidone 3 mg tablet 3 mg PO DAILY 05/25/19 09/06/24 metoprolol succinate 25 mg 12.5 mg PO ONCE 02/28/24 09/06/24 tablet,extended release 24 hr hydrocodone 5 mg-acetaminophen 325 1 tab PO Q6H PRN 05/12/24 09/06/24 mg tablet methadone 10 mg/5 mL oral solution 60 mg PO DAILY 05/12/24 09/06/24 Allergies Allergy/AdvReac Type Severity Reaction Status Date / Time prednisone Allergy Severe Other (See Verified 09/06/24 05:54 Comment) clonidine Allergy Intermediate causes Verified 09/06/24 05:54 tongue to become red and hot gabapentin Allergy Intermediate makes my Verified 09/06/24 05:54 throat close up hydroxyzine AdvReac Intermediate anxiety Verified 09/06/24 05:54 atomoxetine (From Strattera) AdvReac urinary Verified 09/06/24 05:54 retention quetiapine (From Seroquel) AdvReac myalgias Verified 09/06/24 05:54 General Stated Complaint: Chest/Rib RAFIA: 3 Review of Systems Narrative: see HPI Exam Narrative Exam Narrative: GENERAL: Alert, no acute distress. SKIN: Warm and well perfused. HEAD: Atraumatic, normocephalic without edema, discoloration or evidence of trauma. NECK: Trachea midline. No discolorations or edema. CV: Regular rate and rhythm, Normal s1 and s2. No murmurs, rubs, or gallops. CHEST: Gynecomastia. Faint echymoiss to right anteriorlateral chest wall, TTP. Chest symmetric with respirations. No crepitus. Lungs are clear to auscultation bilaterally. ABDOMEN: No ecchymosis or abrasions. BACK: No abrasions, skin openings, or ecchymosis. MSK: No gross deformities or discolorations or lesions. NEURO: Alert and oriented to person, place, and time. GCS 15. Moves all extremities freely against gravity. Course Vital Signs Vital signs: Vital Signs Temperature 37.2 C 09/06/24 05:49 Pulse 94 H 09/06/24 05:49 Respiratory Rate 18 09/06/24 05:49 Blood Pressure 150/99 H 09/06/24 05:49 Pulse Oximetry 97 09/06/24 05:49 Temperature 37.2 C 09/06/24 05:49 Temperature Source Temporal Artery Scan 09/06/24 05:49 Pulse 94 H 09/06/24 05:49 Respiratory Rate 18 09/06/24 05:49 Respiratory Effort Normal, Non-Labored 09/06/24 05:57 Respiratory Depth Normal 09/06/24 05:57 Respiratory Pattern Normal 09/06/24 05:57 Blood Pressure 150/99 H 09/06/24 05:49 Blood Pressure Position Sitting 09/06/24 05:49 Pulse Oximetry 97 09/06/24 05:49 Oxygen Delivery Method Room Air 09/06/24 05:49 Oxygen Flow Rate 0 09/06/24 05:49 Pain Level 9 09/06/24 05:57 Medical Decision Making 49yo M with chronic back pain, on methadone and oxycodone, presenting for right rib pain after fall onto the back of his couch. Vital signs reassuring on arrival, echymosis to right anterior chest wall and tenderness in this area. Lungs CTAB. Trauma exam otherwise reassuring; would not get CT imaging or labs. PERC negative; would not get dimer. Will give tylenol and IM toradol for pain, get CXR to evaluate for possible rib fracture. CXR independently reviewed; no pneumothorax or displaced fracture on my view; radiology read with no acute findings. Advised symptomatic treatment at home. Discharged home; discharge instructions and return precautions were reviewed with patient who verbalized understanding. All questions were answered and he is in agreement with the plan. Imaging Data Radiologic Study: Imaging: X-Ray Radiologist's impression: IMPRESSION: No acute findings to explain reported symptoms. Quality:SDOH Health Related Social Needs: No Data to Display PFSH All Active Problems (Updated 09/06/24 @ 06:42 by Xuan Quintanilla MD) Pain in rib (Acute) Chronic pain of left groin (Acute) Chest pain at rest (Acute) Palpitations (Acute) Chronic constipation (Acute) Central sleep apnea (Acute) Nicotine dependence (Acute) Opioid dependence (Acute) Bipolar disorder (Acute) Severe obesity (Acute) Hyperlipidemia (Acute) Medical History (Updated 09/06/24 @ 06:42 by Xuan Quintanilla MD) Generalized abdominal pain Chest pain Sleep disorder Impotence of organic origin Biliary dyskinesia Diaphragmatic hernia Asthma DVT (deep venous thrombosis) (~02/2018) per pt, d/t IV use Benign paroxysmal positional vertigo ADHD (attention deficit hyperactivity disorder) Cocaine abuse Testicular hypofunction Family History (Updated 06/03/19 @ 10:00 by Gaye Wong RN, RN) Mother No problems noted. Father Heart disease Atrial fibrillation Diabetes Social History Smoking/Tobacco Use Status: Current every day Tobacco Type: cigarettes Smoking packs per day: 1 Smoking cigarettes per day: 20.0 Years smoked: 15 Smoking pack- years: 15.00 Quit status: considering quitting Smoking risk assessment performed?: Yes Alcohol Intake: never Drug use: Never Substance use type: former substance user Details: sober for 15 years. Household members: children Housing: apartment Current gender identity: male What type of physical activity do you participate in: none Do you feel safe at home: Yes Do you feel safe in your relationship?: Yes
[2024-09-06] MEDS: Ketorolac 15 MG/ML VIAL IM (06:18)
[2024-09-06] MEDS: Acetaminophen 500 MG TAB 1000 MG PO (06:18)
--- NOTE | 2024-09-06 07:25 | DI.VRAD_ITS ---
PROCEDURE INFORMATION: Exam: XR Chest Exam date and time: 09/06/2024 6:26 AM Age: 49 years old Clinical indication: Injury or trauma; Blunt trauma (contusions or hematomas); Injury date: 09/05/24; Injury details: Fall, right lateral rib pain TECHNIQUE: Imaging protocol: Radiologic exam of the chest. Views: 2 views. COMPARISON: No relevant prior studies available. FINDINGS: Lungs: No focal consolidation seen. Pleural spaces: No large pleural effusion seen. Heart/Mediastinum: No cardiomegaly. Bones/joints: No acute abnormality. IMPRESSION: No acute findings to explain reported symptoms. Dictated and Authenticated by: Sadia Nelson MD. Orderin Socorro Govea MD
== END 2024-09-06 07:43 | disposition home or self-care (01) ==
PROVIDERS: Emergency Provider Student in an Organized Health Care Education/Training Program; PCP Family Medicine
DX: R07.81 Pleurodynia (principal); G89.29 Other chronic pain; M54.50 Low back pain, unspecified; Z79.891 Long term (current) use of opiate analgesic; Z86.718 Personal history of other venous thrombosis and embolism
CPT/HCPCS: 99283; 71046; J1885